=== PATIENT | female | born 1995 | race Asian ===

== ENCOUNTER 2017-07-05 21:06 | Emergency (ER) | payer OTHER ==
[~2017-07-05] VITALS: Ht 160 cm; Wt 56.4 kg
[2017-07-05 21:50] VITALS: Ht 160 cm; Wt 56.4 kg
[2017-07-06 00:26] VITALS: BP 123/79
== END 2017-07-06 00:26 | disposition home or self-care (01) ==
LOC: ED 21:06
DX: S80.211A Abrasion, right knee, initial encounter (principal); M25.512 Pain in left shoulder; V49.88XA Car occupant (driver) (passenger) injured in other specified transport accidents, initial encounter; Y93.89 Activity, other specified; Y92.89 Other specified places as the place of occurrence of the external cause; Y99.8 Other external cause status

== ENCOUNTER 2017-07-11 08:55 | Emergency (ER) | payer OTHER ==
[~2017-07-11] VITALS: Ht 162.6 cm; Wt 58.0 kg
[2017-07-11 09:02] VITALS: BP 115/66; Ht 162.6 cm; Wt 58.0 kg
== END 2017-07-11 09:25 | disposition home or self-care (01) ==
LOC: ED 08:55
DX: Z00.00 Encounter for general adult medical examination without abnormal findings (principal)